=== PATIENT | male | born 1995 | race Caucasian/White ===

== ENCOUNTER 2017-02-06 11:12 | Emergency (ER) | payer OTHER ==
[2017-02-06] MEDS ORDERED: LORazepam 2 MG/ML MDV IVPUSH ONE (11:47)
[2017-02-06] MEDS ORDERED: Sodium Chloride 0.9% 1,000 ML IV ONE ×2 (11:48→13:52)
[2017-02-06] MEDS ORDERED: HYDROmorphone 0.5 MG/0.5 ML Syringe IVPUSH ONE ×2 (11:48→12:52)
[2017-02-06] MEDS ORDERED: Ondansetron 4 MG/2 ML SDV IVPUSH ONE (11:48)
--- NOTE | 2017-02-06 11:55 | EDM.PDOC ---
ED HPI GENERAL MEDICAL PROBLEM - General Chief Complaint: Abdominal Pain Stated Complaint: NAUSEA/VOMITING Time Seen by Provider: 02/06/17 11:45 Source of Information: Reports: Patient, Family History Limitations: Reports: No Limitations - History of Present Illness INITIAL COMMENTS - FREE TEXT/NARRATIVE: Eduard is a 21 year old otherwise healthy male who presents to the ED today with his mom and girlfriend for ongoing issues of abdominal pain, nausea and vomiting. Patient reports that he was seen in clinic on Monday where blood work was done which mom reports as "normal". Patient was started on Pepcid which really hasn't helped. Patient does endorse smoking marijuana, last used last night, symptoms worse this morning. Patient did have a "normal" BM this morning. Patient is vomiting up bile. He is in distress, clammy, cool, diaphoretic. He has never had any abdominal surgeries in the past. Patient smokes e cigs and chews tobacco. Abdomen Pain Score (Numeric/FACES): 9 - Related Data Allergies Allergy/AdvReac Type Severity Reaction Status Date / Time No Known Allergies Allergy Verified 02/06/17 11:36 Home Meds: Home Meds NK [No Known Home Meds] 07/15/14 [History] Past Medical History - Past Health History Medical/Surgical History: Denies Medical/Surgical History Social & Family History - Tobacco Use Smoking Status *Q: Light Tobacco Smoker - Alcohol Use Days Per Week of Alcohol Use: 0 - Recreational Drug Use Recreational Drug Use: No ED ROS GENERAL - Review of Systems Review Of Systems: See Below Constitutional: Reports: Diaphoresis, Weight Loss HEENT: Reports: No Symptoms Respiratory: Reports: No Symptoms Cardiovascular: Reports: No Symptoms Endocrine: Reports: No Symptoms GI/Abdominal: Reports: Abdominal Pain, Nausea, Vomiting : Reports: No Symptoms Musculoskeletal: Reports: No Symptoms Skin: Reports: No Symptoms Neurological: Reports: No Symptoms Psychiatric: Reports: No Symptoms Hematologic/Lymphatic: Reports: No Symptoms Immunologic: Reports: No Symptoms ED EXAM, GI/ABD - Physical Exam Exam: See Below Exam Limited By: No Limitations General Appearance: Alert, Moderate Distress Throat/Mouth: Other (modestly dehydrated) Head: Atraumatic Respiratory/Chest: No Respiratory Distress GI/Abdominal Exam: Normal Bowel Sounds, Guarding, Tender (generalized, increased RLQ, RUQ and mid epigastric region). No: Distended Rectal (Males) Exam: Deferred Extremities: Normal Inspection Neurological: Alert, Oriented Psychiatric: Anxious Skin Exam: Cool, Diaphoretic Lymphatic: No Adenopathy Course - Vital Signs Last Recorded V/S: Last Vital Signs Temp 36.4 C 02/06/17 13:50 Pulse 67 02/06/17 13:50 Resp 16 02/06/17 13:50 BP 149/72 H 02/06/17 13:50 Pulse Ox 100 02/06/17 13:50 Eduard is an otherwise healthy 21 year old male who presents to the ED today with c/o abdominal pain, nausea and vomiting. Patient's symptoms have been ongoing for the last several days, they come and go. Patient admits to using "concentrated marijuana", last used last night. Patient's presentation is consistent with Hyperemesis Cannabis. That being said he has had no imaging done to rule out other acute etiology. PIV established, patient was given 2 liters of NS, IV Ativan, IV Zofran and IV Dilaudid for pain with good improvement in his symptoms. Blood work obtained, CBC returns with mild leukocytosis with left shift. CMP returns with potassium of 3.4, sodium of 139 , glucose of 118 and total bilirubin of 1.1. Remaining CMP is unremarkable and CRP is negative. CT scan obtained of abdomen/pelvis and is negative for any acute findings. I discussed findings with patient and his mom, as well as my concerns for his condition, I strongly encouraged patient to stop using Marijuana as I feel his symptoms with vastly improve. Patient is agreeable. He was able to tolerate oral intact while here and was stable to be discharged home. Patient left in stable condition with his girlfriend driving. - Orders/Labs/Meds Orders: Active Orders 24 hr Category Date Time Status Peripheral IV Care [RC] . DIRECTED Care 02/06/17 11:47 Active Sodium Chloride 0.9% [Normal Saline] 1,000 ml Med 02/06/17 13:52 Active IV .BOLUS Sodium Chloride 0.9% [Saline Flush] Med 02/06/17 11:47 Active 10 ml FLUSH ASDIRECTED PRN Peripheral IV Insertion Adult [OM.PC] Routine Oth 02/06/17 11:47 Ordered Medication Orders Sodium Chloride (Normal Saline) 1,000 mls @ 999 mls/hr IV .BOLUS ONE Stop: 02/06/17 14:52 Last Admin: 02/06/17 14:01 Dose: 999 mls/hr Sodium Chloride (Saline Flush) 10 ml FLUSH ASDIRECTED PRN PRN Reason: Keep Vein Open Last Admin: 02/06/17 13:01 Dose: 10 ml Admin: 02/06/17 12:09 Dose: 10 ml Labs: Laboratory Tests 02/06/17 02/06/17 02/06/17 Range/Units 11:55 11:55 12:08 WBC 11.3 H (4.5-11.0) K/uL RBC 5.62 (4.30-5.90) M/uL Hgb 17.1 H (12.0-15.0) g/dL Hct 45.8 (40.0-54.0) % MCV 82 (80-98) fL MCH 30 (27-31) pg MCHC 37 H (32-36) % Plt Count 211 (150-400) K/uL Neut % (Auto) 75 H (36-66) % Lymph % (Auto) 19 L (24-44) % [place] % (Auto) 5 (2-6) % Eos % (Auto) 0 L (2-4) % Baso % (Auto) 1 (0-1) % Sodium 139 L (140-148) mmol/L Potassium 3.4 L (3.6-5.2) mmol/L Chloride 101 (100-108) mmol/L Carbon Dioxide 26 (21-32) mmol/L Anion Gap 15.4 H (5.0-14.0) mmol/L BUN 14 (7-18) mg/dL Creatinine 1.3 (0.8-1.3) mg/dL Est Cr Clr Drug Dosing 88.23 mL/min Estimated GFR (MDRD) > 60 (>60) Glucose 118 H (74-106) mg/dL Calcium 9.7 (8.5-10.1) mg/dL Total Bilirubin 1.1 H (0.2-1.0) mg/dL AST 25 (15-37) U/L ALT 27 (12-78) U/L Alkaline Phosphatase 90 (46-116) U/L C-Reactive Protein 0.04 (0.0-0.3) mg/dL Total Protein 9.0 H (6.4-8.2) g/dL Albumin 4.6 (3.4-5.0) g/dL Globulin 4.4 H (2.3-3.5) g/dL Albumin/Globulin Ratio 1.1 L (1.2-2.2) Lipase 170 (73-393) U/L Meds: Medications Generic Name Dose Route Start Last Admin Trade Name Amelia PRN Reason Stop Dose Admin Sodium Chloride 1,000 mls @ 999 mls/hr 02/06/17 13:52 02/06/17 14:01 Normal Saline IV 02/06/17 14:52 999 mls/hr .BOLUS ONE Administration Sodium Chloride 10 ml 02/06/17 11:47 02/06/17 13:01 Saline Flush FLUSH 10 ml ASDIRECTED PRN Administration Keep Vein Open Discontinued Medications Generic Name Dose Route Start Last Admin Trade Name Amelia PRN Reason Stop Dose Admin Hydromorphone HCl 0.5 mg 02/06/17 11:48 02/06/17 12:10 Dilaudid IVPUSH 02/06/17 11:49 0.5 mg ONETIME ONE Administration Hydromorphone HCl 0.5 mg 02/06/17 12:52 02/06/17 13:44 Dilaudid IVPUSH 02/06/17 12:53 0.5 mg ONETIME ONE Administration Sodium Chloride 1,000 mls @ 999 mls/hr 02/06/17 11:48 02/06/17 12:10 Normal Saline IV 02/06/17 12:48 999 mls/hr .BOLUS ONE Administration Sodium Chloride 80 mls @ 3 mls/sec 02/06/17 12:45 02/06/17 13:18 Normal Saline IV 02/06/17 14:00 3 mls/sec ASDIRECTED MANDEEP Administration Iopamidol 100 ml 02/06/17 12:44 02/06/17 13:18 Isovue-300 (61%) IV 02/06/17 14:00 100 ml . DIRECTED PRN Administration RADIOLOGY EXAM Ketorolac Tromethamine 30 mg 02/06/17 13:52 02/06/17 14:01 Toradol IVPUSH 02/06/17 13:53 30 mg ONETIME ONE Administration Lorazepam 1 mg 02/06/17 11:47 02/06/17 12:10 Ativan IVPUSH 02/06/17 11:48 1 mg ONETIME ONE Administration Ondansetron HCl 4 mg 02/06/17 11:48 02/06/17 12:10 Zofran IVPUSH 02/06/17 11:49 4 mg ONETIME ONE Administration Departure - Departure Time of Disposition: 15:00 Disposition: Home, Self-Care 01 Condition: Good Clinical Impression: Cannabinoid hyperemesis syndrome - Discharge Information Instructions: Nausea and Vomiting, Adult, [id number] Referrals: Susan Gant PA [Primary Care Provider] - Forms: ED Department Discharge Additional Instructions: Eduard, I feel your symptoms are largely related to your Marijuana use. Please try to stop using, I think your symptoms will vastly improve. I would strongly encourage you to stay well hydrated. I am going to send you home with Zofran, a medication for nausea/vomiting as needed. Please follow up with your primary care doctor in one week for follow up. Good luck with everything. - My Orders Last 24 Hours: My Active Orders 02/06/17 11:47 Peripheral IV Care [RC] . DIRECTED Sodium Chloride 0.9% [Saline Flush] 10 ml FLUSH ASDIRECTED PRN Peripheral IV Insertion Adult [OM.PC] Routine 02/06/17 13:52 Sodium Chloride 0.9% [Normal Saline] 1,000 ml IV .BOLUS - Assessment/Plan Last 24 Hours: My Active Orders 02/06/17 11:47 Peripheral IV Care [RC] . DIRECTED Sodium Chloride 0.9% [Saline Flush] 10 ml FLUSH ASDIRECTED PRN Peripheral IV Insertion Adult [OM.PC] Routine 02/06/17 13:52 Sodium Chloride 0.9% [Normal Saline] 1,000 ml IV .BOLUS
[2017-02-06] MEDS: Sodium Chloride 0.9% 10 ML Syringe FLUSH PRN ×2 (12:09→13:01)
[2017-02-06] MEDS ORDERED: Iopamidol 612 MG/ML 100 ML Bottle IV PRN (12:44)
[2017-02-06] MEDS ORDERED: Sodium Chloride 0.9% 80 ML IV SCH (12:45)
--- NOTE | 2017-02-06 13:45 | CT ---
Abdomen Pelvis w Cont HISTORY: abdominal pain Axial spiral enhanced CT scan of the abdomen and pelvis was obtained using IV contrast only. Coronal reconstructions were obtained. FINDINGS: Heart size is normal. Lung bases are clear. No focal abnormality of the liver, spleen, gal lbladder, pancreas, adrenal glands, or kidneys is identified. There is no hydronephrosis or ureteral dilatation. Abdominal aorta is unremarkable. No pelvic mass or abnormal fluid collections are seen. There is no pelvic, retroperitoneal, mesenter ic adenopathy. No free air or free fluid is noted. Small bowel loops are nondistended. A normal-appe aring appendix is visualized. No other colon abnormality is seen. Bony structures are unremarkable. IMPRESSION: No acute intra-abdominal or pelvic abnormalities identified. Findings were discussed with Dr. Nydia Arceo in the emergency department at 1337 hours. Total DLP 397 mGycm
[2017-02-06] MEDS ORDERED: Ketorolac 30 MG/ML SDV IVPUSH ONE (13:52)
[2017-02-06 15:06] VITALS: BP 162/72
== END 2017-02-06 15:08 | disposition home or self-care (01) ==
LOC: JP.ED 11:12
DX: F12.988 Cannabis use, unspecified with other cannabis-induced disorder (principal); F17.200 Nicotine dependence, unspecified, uncomplicated
CPT/HCPCS: 36415; 74177; 80053; 83690; 85025; 86140; 96361; 96374; 96375; 99284; J1170; J1885; J2060; J2405; J7030; J7040; J7050; Q9967

== ENCOUNTER 2019-03-19 07:52 | Day surgery (SDC) | payer OTHER ==
[~2019-03-19 07:52] MED LIST: Bupivacaine 0.5% 50 ML MDV ONE; Lidocaine 1% 50 ML MDV ONE
[2019-03-19] MEDS ORDERED: Sodium Chloride 0.9% 1,000 ML IV SCH (08:00)
[2019-03-19] MEDS ORDERED: fentaNYL 100 MCG/2 ML SDV ONE (08:45)
[2019-03-19] MEDS ORDERED: Midazolam 1 MG/ML 2 ML SDV ONE (08:45)
[2019-03-19] MEDS ORDERED: Propofol 200 MG/20 ML SDV ONE (08:45)
[2019-03-19] MEDS ORDERED: Bupivacaine 0.5% 50 ML MDV ONE (08:47)
[2019-03-19] MEDS ORDERED: Bacitracin Oint 1 GM U/D Packet ONE (09:32)
[2019-03-19] MEDS ORDERED: Acetaminophen/HYDROcodone 325-5 MG Tab PO ONE (10:30)
[2019-03-19 10:54] VITALS: BP 122/69; PULSE 64
--- NOTE | 2019-03-19 15:40 | OR ---
DATE OF PROCEDURE: 03/19/2019 SURGEON: Waldemar Child MD PROCEDURE PERFORMED: Removal foreign body, left thumb, using intraoperative fluoroscopy. COMPLICATION: None. 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 ANESTHESIA: Digital block/MAC. RISKS: Risks, benefits, alternatives, and limitations including, but not limited to, infection, bleeding, and chronic scar or pain formation were explained to the patient who wished to proceed. PROCEDURE IN DETAIL: The patient was placed in supine position. Using the intraoperative fluoroscopy, a foreign body consistent with metal was noted in the distal thumb slightly distal to the injury point. An incision was made approximately 8 mm in size and a Dotty clamp was used to dissect down to the foreign body which was then extracted under fluoroscopic guidance. The wound was then closed with interrupted Prolene suture 5-0. This was performed after thorough irrigation. Dressings were applied. The patient tolerated the procedure well. Waldemar Child MD /[id number]
== END 2019-03-19 11:45 | disposition home or self-care (01) ==
LOC: JP.SDS 07:52
PROVIDERS: ATTEND Surgery
DX: S60.352A Superficial foreign body of left thumb, initial encounter (principal)
CPT/HCPCS: 10120; 76000; A9270; J2250; J2704; J3010; J3490; J7030; J2001